=== PATIENT | female | born 1990 | race Caucasian/White ===

== ENCOUNTER 2018-11-05 17:38 | Outpatient (CLI) | payer MEDICAID ==
[2018-11-05 19:59] LABS: ADD UMIC YES; UR ASCORBIC ACID NEGATIVE (NEGATIVE); UR BACTERIA FEW /HPF (NONE SEEN); UR BILIRUBIN (Dip) NEGATIVE (NEGATIVE); UR BLOOD (Dip) NEGATIVE (NEGATIVE); UR CALCIUM OXALATE CRYSTAL MANY /HPF (NONE SEEN); UR CLARITY CLOUDY (CLEAR); UR COLOR YELLOW (YELLOW); UR GLUCOSE (Dip) NEGATIVE (NEGATIVE); UR KETONES (Dip) TRACE mg/dL (NEGATIVE); UR LEUKOCYTE ESTERASE (Dip) 1+ Leu/ul (NEGATIVE); UR MUCUS MODERATE /HPF (NONE SEEN); UR NITRITE (Dip) NEGATIVE (NEGATIVE); UR RBC 1 /HPF (0-5); UR SPECIFIC GRAVITY (Dip) 1.026 (1.003-1.030); UR SQUAMOUS EPITHELIAL CELL MANY /HPF (FEW); UR TOTAL PROTEIN (Dip) 1+ mg/dl (NEGATIVE); UR UROBILINOGEN (Dip) 1+ mg/dL (NEGATIVE); UR WBC 5 /HPF (0-5)
[2018-11-05 21:06] LABS: ADD MAN DIFF? NO
[2018-11-05 21:19] LABS: BASOPHILS % 0.2 % (0.0-2.0); EOSINOPHILS # 0.1 10^3/ul (0.0-0.5); EOSINOPHILS % 0.4 % (0.0-7.0); HEMATOCRIT 34.7 % (37.0-47.0); HEMOGLOBIN 11.7 g/dl (12.0-16.0); LYMPHOCYTES # 2.1 10^3/ul (0.8-2.9); LYMPHOCYTES % 18.7 % (15.0-51.0); MEAN CORPUSCULAR HEMOGLOBIN 31.2 pg (29.0-33.0); MEAN CORPUSCULAR HGB CONC 33.7 g/dl (32.0-37.0); MEAN CORPUSCULAR VOLUME 92.5 fl (82.0-101.0); MEAN PLATELET VOLUME 12.1 fl (7.4-10.4); MONOCYTE # 0.4 10^3/ul (0.3-0.9); NEUTROPHIL # 8.5 10^3/ul (1.6-7.5); NEUTROPHILS % 76.3 % (39.0-77.0); PLATELET COUNT 225 10^3/UL (140-415); RED BLOOD COUNT 3.75 10^6/ul (4.20-5.40); RED CELL DISTRIBUTION WIDTH 12.1 % (11.5-14.5)
[2018-11-05 21:19] LABS: WHITE BLOOD COUNT 11.1 10^3/ul (4.8-10.8)
== END 2018-11-05 21:48 | disposition home or self-care (01) ==
LOC: OBT 17:38 → L-D 17:39 → OBT 21:48
DX: O34.219 Maternal care for unspecified type scar from previous cesarean delivery (principal); O26.893 Other specified pregnancy related conditions, third trimester; R10.2 Pelvic and perineal pain; Z3A.37 37 weeks gestation of pregnancy
CPT/HCPCS: 76818; 81001; 85025; 87086

== ENCOUNTER 2018-11-16 23:35 | Outpatient (CLI) | payer MEDICAID ==
[2018-11-17] MEDS: LACTATED RINGER'S 1,000 ML IV ×2 (02:06→02:40)
== END 2018-11-17 03:40 | disposition home or self-care (01) ==
LOC: OBT 23:35 → L-D 23:35
DX: O47.1 False labor at or after 37 completed weeks of gestation (principal); O34.219 Maternal care for unspecified type scar from previous cesarean delivery; Z3A.38 38 weeks gestation of pregnancy
CPT/HCPCS: 96360; 96366

== ENCOUNTER 2018-11-23 05:40 | Inpatient (IN) | payer MEDICAID ==
[2018-11-23] MEDS ORDERED: CARBOPROST 250 MCG INJ IM ×2 (06:00→11:00)
[2018-11-23] MEDS ORDERED: OXYTOCIN 30 UNITS/LR 500 ML IV ×2 (06:00→11:00)
[2018-11-23] MEDS ORDERED: METHYLERGONOVINE 0.2 MG INJ IM ×2 (06:00→11:00)
[2018-11-23] MEDS ORDERED: MISOPROSTOL 200 MCG TAB PR ×2 (06:00→11:00)
[2018-11-23 06:08] LABS: ADD MAN DIFF? NO
[2018-11-23 06:17] LABS: WHITE BLOOD COUNT 10.3 10^3/ul (4.8-10.8)
[2018-11-23 06:17] LABS: BASOPHILS % 0.3 % (0.0-2.0); EOSINOPHILS # 0.1 10^3/ul (0.0-0.5); EOSINOPHILS % 1.4 % (0.0-7.0); HEMATOCRIT 39.4 % (37.0-47.0); HEMOGLOBIN 13.2 g/dl (12.0-16.0); LYMPHOCYTES # 2.6 10^3/ul (0.8-2.9); MEAN CORPUSCULAR HEMOGLOBIN 31.3 pg (29.0-33.0); MEAN CORPUSCULAR HGB CONC 33.5 g/dl (32.0-37.0); MEAN CORPUSCULAR VOLUME 93.4 fl (82.0-101.0); MEAN PLATELET VOLUME 12.6 fl (7.4-10.4); MONOCYTE # 0.4 10^3/ul (0.3-0.9); MONOCYTES % 3.8 % (0.0-11.0); NEUTROPHIL # 7.1 10^3/ul (1.6-7.5); NEUTROPHILS % 68.9 % (39.0-77.0); PLATELET COUNT 237 10^3/UL (140-415); RED BLOOD COUNT 4.22 10^6/ul (4.20-5.40); RED CELL DISTRIBUTION WIDTH 12.2 % (11.5-14.5)
[2018-11-23] MEDS ORDERED: CLINDAMYCIN 900 MG/D5W (PMX) 50 ML IVPB (06:30)
[2018-11-23 06:37] LABS: INR 0.86; PROTIME 11.8 Sec (11.9-14.9); PT RATIO 0.9
[2018-11-23 06:38] LABS: PARTIAL THROMBOPLASTIN TIME 28.5 Sec (23.0-35.0)
[2018-11-23] MEDS: LACTATED RINGER'S 1,000 ML IV ×2 (06:42→12:39)
[2018-11-23 07:09] LABS: HEPATITIS B SURFACE ANTIGEN NEGATIVE (NEGATIVE)
[2018-11-23] MEDS ORDERED: FENTAnyl 50 MCG/ML VIAL (07:09)
[2018-11-23] MEDS ORDERED: morphine SULFATE/PF (10 MG/10 ML) INJ (07:09)
[2018-11-23] MEDS ORDERED: PHENYLephrine (100 MCG/ML) 10ML SYG (07:13)
[2018-11-23] MEDS ORDERED: ONDANSETRON 4 MG INJ (07:28)
[2018-11-23] MEDS ORDERED: DEXAMETHASONE 4 MG/ML 1 ML INJ (07:28)
[2018-11-23] MEDS ORDERED: DIPHENHYDRAMINE 50 MG INJ IV ×2 (08:00→11:00)
[2018-11-23] MEDS ORDERED: HYDROmorphONE 0.5 MG/0.5 ML SYG IV ×2 (08:00)
[2018-11-23] MEDS ORDERED: NALOXONE (0.4 MG/ML) INJ IV (08:00)
[2018-11-23] MEDS ORDERED: KETOROLAC 30 MG INJ IV (08:00)
[2018-11-23] MEDS ORDERED: ONDANSETRON 4 MG INJ IV ×2 (08:00→11:00)
[2018-11-23] MEDS ORDERED: ZOLPIDEM 5 MG TAB PO ×2 (08:00→11:00)
[2018-11-23] MEDS: OXYTOCIN 30 UNITS/LR 500 ML IV (08:37)
[2018-11-23] MEDS ORDERED: OXYCODONE/ACETAMINOPHEN (5/325) TAB PO (11:00)
[2018-11-23] MEDS ORDERED: LANOLIN HPA 1 PKT TOP (11:00)
[2018-11-23 18:45] LABS: RAPID PLASMA REAGIN NONREACTIVE (NR)
[2018-11-23] MEDS: SENNA/DOCUSATE NA (8.6MG/50MG) TAB PO (20:40)
[2018-11-24 08:58] LABS: ADD MAN DIFF? NO
[2018-11-24 09:02] LABS: BASOPHILS % 0.2 % (0.0-2.0); EOSINOPHILS % 0.2 % (0.0-7.0); HEMATOCRIT 33.1 % (37.0-47.0); HEMOGLOBIN 11.3 g/dl (12.0-16.0); LYMPHOCYTES # 2.3 10^3/ul (0.8-2.9); LYMPHOCYTES % 18.6 % (15.0-51.0); MEAN CORPUSCULAR HEMOGLOBIN 31.4 pg (29.0-33.0); MEAN CORPUSCULAR HGB CONC 34.1 g/dl (32.0-37.0); MEAN CORPUSCULAR VOLUME 91.9 fl (82.0-101.0); MEAN PLATELET VOLUME 12.2 fl (7.4-10.4); MONOCYTE # 0.6 10^3/ul (0.3-0.9); MONOCYTES % 4.8 % (0.0-11.0); NEUTROPHIL # 9.2 10^3/ul (1.6-7.5); NEUTROPHILS % 75.6 % (39.0-77.0); PLATELET COUNT 186 10^3/UL (140-415); RED CELL DISTRIBUTION WIDTH 12.3 % (11.5-14.5)
[2018-11-24 09:02] LABS: WHITE BLOOD COUNT 12.2 10^3/ul (4.8-10.8)
[2018-11-24] MEDS: SENNA/DOCUSATE NA (8.6MG/50MG) TAB PO ×2 (09:59→20:45)
[2018-11-24] MEDS: IBUPROFEN 600 MG TAB PO ×2 (12:00→17:32)
[2018-11-24] MEDS: INFLUENZA VIRUS VACCINE 0.5 ML (DISPENSING) IM* (16:00)
[2018-11-25] MEDS: OXYCODONE/ACETAMINOPHEN (5/325) TAB PO (03:44)
[2018-11-25] MEDS: IBUPROFEN 600 MG TAB PO ×3 (06:00→12:07)
[2018-11-25] MEDS: SENNA/DOCUSATE NA (8.6MG/50MG) TAB PO (10:03)
[2018-11-26] MEDS ORDERED: DIPHTH/TET/ACEL PERTUSS (ADULT) 0.5 ML VIAL IM* (09:00)
== END 2018-11-25 17:50 | disposition home or self-care (01) | DRG 785 ==
LOC: L-D 05:40 → PP1 10:57
PROVIDERS: Obstetrics & Gynecology
PROC: 10D00Z1 Extraction of Products of Conception, Low, Open Approach (ICD-10-PCS; principal; 2018-11-23 07:30)
PROC: 0UT70ZZ Resection of Bilateral Fallopian Tubes, Open Approach (ICD-10-PCS; 2018-11-23 07:30)
DX: O48.0 Post-term pregnancy (principal); Z30.2 Encounter for sterilization; Z3A.40 40 weeks gestation of pregnancy; Z37.0 Single live birth
CPT/HCPCS: 85025; 85610; 85730; 86592; 86850; 86900; 86901; 87340; 88302; 90686; 99464